=== PATIENT | female | born 1950 | race African-American/Black ===

== ENCOUNTER 2017-05-29 02:03 | Inpatient (IN) | payer OTHER ==
[2017-05-29 02:57] LABS: Absolute Monocytes 0.6 K/uL (0.1-1.3); Absolute Neutrophil 3.6 K/uL (1.8-8.0); Basophils % 0.8 % (0-1.3); Eosinophils % 4.1 % (0-4.4); Hematocrit 39.2 % (36.0-45.0); Lymphocytes % 39.2 % (15.3-44.8); MCH 28.7 pg (27.0-35.0); MCV 86.9 fL (80-100); MPV 11.8 fL (7.6-11.3); Monocytes % 8.2 % (3.3-12.3); RBC Red Blood Cell Count 4.51 M/uL (3.86-4.86)
[2017-05-29 02:58] LABS: Protime INR 1.2
[2017-05-29 03:12] LABS: Albumin 4.4 g/dL (3.2-5.5); Bilirubin Direct 0.2 mg/dL (0-0.2); Bilirubin Total 0.8 mg/dL (0.3-1.2); Magnesium 1.9 mg/dL (1.8-2.5); Protein, Total 7.7 g/dL (6.0-8.3)
[2017-05-29 03:22] LABS: Potassium 2.2 mEq/L (3.6-5.0)
--- NOTE | 2017-05-29 03:35 | ER ---
Nurse's Notes [facility] Name: Lilli Dave Age: 67 yrs Sex: Female : 1950 Arrival Date: 05/29/2017 Time: 02:10 Bed 18 Private MD: Diagnosis: Atrial fibrillation and flutter-New onset Presentation: 05/29 02:10 Presenting complaint: EMS states: pt called c/o CP and fatigue x 1 hour. 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 Upon arrival to ED pt denies CP. C/O weakness and nausea only. Transition of care: patient was not received from another setting of care. Onset of symptoms was May 29, 2017. Care prior to arrival: Medication(s) given: ASA, 81 mg, x 4. 02:10 Method Of Arrival: EMS: [facility] aa1 02:10 Acuity: IBAN 3 aa1 Historical: - Allergies: 02:15 No Known Drug Allergies; aa1 - PMHx: 02:15 COPD; Hypertension; Hypothyroidism; CHF; Myocardial infarction; renal insufficiency; aa1 - PSHx: 02:15 Appendectomy; Hysterectomy; Tubal ligation; aa1 - Immunization history:: Flu vaccine is not up to date. - Social history:: Smoking status: Patient/guardian denies using tobacco. Screenin:16 Abuse screen: Denies threats or abuse. Denies injuries from another. Nutritional aa1 screening: No deficits noted. Tuberculosis screening: No symptoms or risk factors identified. Fall Risk None identified. Assessment: 02:16 General: Appears in no apparent distress. comfortable, Behavior is calm, cooperative, aa1 appropriate for age. Pain: Denies pain. Neuro: Level of Consciousness is awake, alert, obeys commands, Oriented to person, place, time, situation, Appropriate for age. Cardiovascular: Reports fatigue, nausea, Heart tones S1 S2 present Capillary refill < 3 seconds Clubbing of nail beds is absent Patient's skin is warm and dry. Rhythm is irregular. Respiratory: Airway is patent Respiratory effort is even, unlabored, Respiratory pattern is regular, symmetrical. GI: Reports nausea. : No signs and/or symptoms were reported regarding the genitourinary system. EENT: No signs and/or symptoms were reported regarding the EENT system. Derm: Skin is intact, is healthy with good turgor, Skin is pink, warm \T\ dry. Musculoskeletal: Circulation, motion, and sensation intact. Capillary refill < 3 seconds. 03:14 Reassessment: Patient appears in no apparent distress at this time. Patient and/or aa1 family updated on plan of care and expected duration. Pain level reassessed. Patient is alert, oriented x 3, equal unlabored respirations, skin warm/dry/pink. Awaiting lab results. 05:03 Reassessment: Patient appears in no apparent distress at this time. Patient and/or aa1 family updated on plan of care and expected duration. Pain level reassessed. Patient is alert, oriented x 3, equal unlabored respirations, skin warm/dry/pink. Report given to Elda on 4th floor. Vital Signs: 02:15 BP 106 / 74; Pulse 77; Resp 20; Temp 97.9(O); Pulse Ox 99% on R/A; Weight 127.01 kg; aa1 Height 5 ft. 6 in. (167.64 cm); Pain 0/10; 03:13 BP 102 / 65; Pulse 113; Resp 18; Pulse Ox 100% on R/A; Pain 0/10; aa1 05:02 BP 104 / 66; Pulse 90; Resp 18; Pulse Ox 100% on R/A; Pain 0/10; aa1 02:15 Body Mass Index 45.19 (127.01 kg, 167.64 cm) aa1 ED Course: 02:10 Patient arrived in ED. aa1 02:11 Kenji Galarza MD is Attending Physician. kdr 02:12 Triage completed. aa1 02:15 Arm band placed on right wrist. Patient placed in an exam room, on a stretcher. aa1 02:16 Patient has correct armband on for positive identification. Placed in gown. Bed in low aa1 position. Call light in reach. Side rails up X2. health information systems technician on. Pulse ox on. NIBP on. Warm blanket given. 02:16 EKG done, by ED staff, reviewed by Kenji Galarza MD. Patient maintains SpO2 saturation aa1 greater than 95% on room air. 02:31 Inserted saline lock: 20 gauge in right antecubital area, using aseptic technique. oe Blood collected. 02:37 X-ray completed. Portable x-ray completed in exam room. Patient tolerated procedure kw well. 02:38 XRAY Chest (1 view) In Process Unspecified. EDMS 03:13 Shayna Alfaro RN is Primary Nurse. aa1 03:34 Jaya Flores MD is Hospitalizing Provider. kdr 05:11 No provider procedures requiring assistance completed. Patient admitted, IV remains in aa1 place. Administered Medications: 03:47 Drug: Digoxin 0.5 mg Route: IVP; Site: right antecubital; aa1 05:13 Follow up: Response: No adverse reaction; Cardiac rhythm is unchanged aa1 03:48 Drug: Potassium Chloride 40 mEq Route: PO; aa1 05:13 Follow up: Response: No adverse reaction aa1 03:48 Drug: Potassium Chloride 20 mEq Route: IV; Rate: calculated rate; Site: right aa1 antecubital; 05:13 Follow up: IV Status: Infusion continued upon admission aa1 03:48 Drug: Lovenox 1 mg/kg Route: Sub-Q; Site: right lower abdomen; aa1 05:13 Follow up: Response: No adverse reaction aa1 Outcome: 03:35 Decision to Hospitalize by Provider. kdr 05:11 Admitted to Tele accompanied by tech, family with patient, via stretcher, room 410, aa1 with chart, Report called to Elda 05:11 Condition: stable 05:11 Instructed on the need for admit, Demonstrated understanding of instructions. 05:14 Patient left the ED. aa1 Signatures: Dispatcher [employer] EDMS Shayna Alfaro RN RN aa1 Kenji Galarza MD MD kdr Whitley, Kimberlee kw Espinosa, [place] oe
--- NOTE | 2017-05-29 03:35 | EDPHYS ---
Physician Documentation [facility] Name: Lilli Dave Age: 67 yrs Sex: Female : 1950 Arrival Date: 05/29/2017 Time: 02:10 Bed 18 Private MD: ED Physician Kenji Galarza HPI: 05/29 02:50 This 67 yrs old Black Female presents to ER via EMS with complaints of Chest Pain. kdr 02:50 The patient or guardian reports chest pain that is located primarily in the anterior kdr chest wall, bilaterally. Onset: gradually, 2 day(s) ago. The pain does not radiate. Associated signs and symptoms: Pertinent positives: diaphoresis, lightheadedness, nausea, palpitations, shortness of breath, Pertinent negatives: dizziness, headache, lower extremity pain, near syncope, recent travel, syncope, vomiting. The chest pain is described as aching, burning, dull, a pressure. Duration: The patient or guardian reports multiple episodes, that are intermittent, that wax and wane, with no pattern. Modifying factors: The symptoms are alleviated by nothing. the symptoms are aggravated by nothing. Severity of pain: At its worst the pain was moderate in the emergency department the pain has improved moderately. The patient has not experienced similar symptoms in the past. The patient has not recently seen a physician. Historical: - Allergies: 02:15 No Known Drug Allergies; aa1 - PMHx: 02:15 COPD; Hypertension; Hypothyroidism; CHF; Myocardial infarction; renal insufficiency; aa1 - PSHx: 02:15 Appendectomy; Hysterectomy; Tubal ligation; aa1 - Immunization history:: Flu vaccine is not up to date. - Social history:: Smoking status: Patient/guardian denies using tobacco. ROS: 02:50 Constitutional: Negative for fever, chills, and weight loss, Eyes: Negative for injury, kdr pain, redness, and discharge, Neck: Negative for injury, pain, and swelling, Cardiovascular: Negative for chest pain, palpitations, and edema, Respiratory: Negative for shortness of breath, cough, wheezing, and pleuritic chest pain, Abdomen/GI: Negative for abdominal pain, nausea, vomiting, diarrhea, and constipation, Back: Negative for injury and pain, : Negative for injury, bleeding, discharge, and swelling, Skin: Negative for injury, rash, and discoloration, Neuro: Negative for headache, weakness, numbness, tingling, and seizure activity. Psych: Negative for depression, anxiety, suicide ideation, homicidal ideation, and hallucinations, Allergy/Immunology: Negative for hives, rash, and allergies, Endocrine: Negative for neck swelling, polydipsia, polyuria, polyphagia, and marked weight changes, Hematologic/Lymphatic: Negative for swollen nodes, abnormal bleeding, and unusual bruising. 02:50 MS/extremity: Positive for swelling, tenderness, Edema to both extremities. She states that her legs used to go down at night but since she has been off her lasix, her legs no longer reduce in size at night. Exam: 02:50 Constitutional: This is a well developed, well nourished patient who is awake, alert, kdr and in no acute distress. Head/Face: Normocephalic, atraumatic. Eyes: Pupils equal round and reactive to light, extra-ocular motions intact. Lids and lashes normal. Conjunctiva and sclera are non-icteric and not injected. Cornea within normal limits. Periorbital areas with no swelling, redness, or edema. Neck: Trachea midline, no thyromegaly or masses palpated, and no cervical lymphadenopathy. Supple, full range of motion without nuchal rigidity, or vertebral point tenderness. No Meningismus. Chest/axilla: Normal chest wall appearance and motion. Nontender with no deformity. No lesions are appreciated. Respiratory: Lungs have equal breath sounds bilaterally, clear to auscultation and percussion. No rales, rhonchi or wheezes noted. No increased work of breathing, no retractions or nasal flaring. Abdomen/GI: Soft, non-tender, with normal bowel sounds. No distension or tympany. No guarding or rebound. No evidence of tenderness throughout. Back: No spinal tenderness. No costovertebral tenderness. Full range of motion. Skin: Warm, dry with normal turgor. Normal color with no rashes, no lesions, and no evidence of cellulitis. MS/ Extremity: Pulses equal, no cyanosis. Neurovascular intact. Full, normal range of motion. 4+ pitting edema bilatrerally Neuro: Awake and alert, GCS 15, oriented to person, place, time, and situation. Cranial nerves II-XII grossly intact. Motor strength 5/5 in all extremities. Sensory grossly intact. Cerebellar exam normal. Normal gait. Psych: Awake, alert, with orientation to person, place and time. Behavior, mood, and affect are within normal limits. 02:50 Cardiovascular: Rate: tachycardic, Rhythm: irregularly irregular, Pulses: no pulse deficits are appreciated, Heart sounds: normal, Edema: 4+ edema to level of left midcalf, left ankle, left foot, right midcalf, right ankle and right foot, pedal edema, that is moderate. Vital Signs: 02:15 BP 106 / 74; Pulse 77; Resp 20; Temp 97.9(O); Pulse Ox 99% on R/A; Weight 127.01 kg; aa1 Height 5 ft. 6 in. (167.64 cm); Pain 0/10; 03:13 BP 102 / 65; Pulse 113; Resp 18; Pulse Ox 100% on R/A; Pain 0/10; aa1 05:02 BP 104 / 66; Pulse 90; Resp 18; Pulse Ox 100% on R/A; Pain 0/10; aa1 02:15 Body Mass Index 45.19 (127.01 kg, 167.64 cm) aa1 MDM: 02:50 Data reviewed: vital signs, nurses notes, lab test result(s). Counseling: I had a kdr detailed discussion with the patient and/or guardian regarding: the historical points, exam findings, and any diagnostic results supporting the discharge/admit diagnosis, lab results, radiology results, the need for further work-up and treatment in the hospital. 03:35 Patient medically screened. [facility] 05/29 02:11 Order name: Basic Metabolic Panel; Complete Time: 03:25 [facility] 05/29 02:11 Order name: BNP; Complete Time: 03:16 [facility] 05/29 02:11 Order name: CBC with Diff; Complete Time: 03:16 [facility] 05/29 02:11 Order name: LFT's; Complete Time: 03:25 kdr 05/29 02:11 Order name: Magnesium; Complete Time: 03:25 [facility] 05/29 02:11 Order name: PT-INR; Complete Time: 03:16 [facility] 05/29 02:11 Order name: Ptt, Activated; Complete Time: 03:16 [facility] 05/29 02:11 Order name: Troponin (emerg Dept Use Only); Complete Time: 03:16 [facility] 05/29 02:11 Order name: XRAY Chest (1 view) [facility] 05/29 03:35 Order name: TSH kdr 05/29 02:11 Order name: EKG; Complete Time: 02:12 kdr 05/29 02:11 Order name: Cardiac monitoring; Complete Time: 02:18 kdr 05/29 02:11 Order name: EKG - Nurse/Tech; Complete Time: 02:18 kdr 05/29 02:11 Order name: IV Saline Lock; Complete Time: : kdr 05/29 02:11 Order name: Labs collected and sent; Complete Time: : kdr 05/29 02:11 Order name: O2 Per Protocol; Complete Time: :18 kdr 05/29 02:11 Order name: O2 Sat Monitoring; Complete Time: :18 kdr Administered Medications: 03:47 Drug: Digoxin 0.5 mg Route: IVP; Site: right antecubital; aa1 05:13 Follow up: Response: No adverse reaction; Cardiac rhythm is unchanged aa1 03:48 Drug: Potassium Chloride 40 mEq Route: PO; aa1 05:13 Follow up: Response: No adverse reaction aa1 03:48 Drug: Potassium Chloride 20 mEq Route: IV; Rate: calculated rate; Site: right aa1 antecubital; 05:13 Follow up: IV Status: Infusion continued upon admission aa1 03:48 Drug: Lovenox 1 mg/kg Route: Sub-Q; Site: right lower abdomen; aa1 05:13 Follow up: Response: No adverse reaction aa1 Disposition: 05/29/17 03:35 Hospitalization ordered by Jaya Flores for Observation. Preliminary diagnosis is Atrial fibrillation and flutter - New onset. - Bed requested for Telemetry/MedSurg (observation). - Status is Observation. aa1 - Condition is Fair. - Problem is new. - Symptoms have improved. UTI on Admission? No Signatures: Dispatcher [employer] EDMS Shayna Alfaro RN RN aa1 Kenji Galarza MD MD kdr Analy Castle RN RN
[2017-05-29] MEDS ORDERED: POTASSIUM CL SA 10 MEQ TAB PO ONE (03:47)
[2017-05-29] MEDS ORDERED: ENOXAPARIN 100 MG/ML SYR SQ ONE (03:48)
[2017-05-29] MEDS ORDERED: DIGOXIN 0.25 MG/ML AMP ONE (03:48)
[2017-05-29] MEDS ORDERED: KCL 20 MEQ/100 mL IVPB 20 MEQ/100 ML BAG IV ONE (03:48)
[2017-05-29] MEDS ORDERED: NA CHLORIDE 0.9% 250 ML ONE ×2 (03:48→23:20)
[2017-05-29] MEDS ORDERED: ACETAMINOPHEN 500 MG TAB PO PRN (04:05)
[2017-05-29] MEDS ORDERED: MORPHINE 4 MG/ML SYR IV PRN (04:05)
[2017-05-29] MEDS: POTASSIUM CL 40 MEQ in NA CHLORIDE 0.9% 500 ML IV SCH ×2 (05:00→09:18)
[2017-05-29 07:36] VITALS: O2SAT 99
[2017-05-29] MEDS ORDERED: PNEUMOCOCCAL VACCINE 0.5 ML IMVAC ONE (08:00)
--- NOTE | 2017-05-29 08:26 | RAD REPORT ---
EXAM DESCRIPTION: RAD - Chest Single View - 05/29/2017 2:37 am CLINICAL HISTORY: Chest pain, fatigue COMPARISON: 03/02/2017 FINDINGS: Portable technique limits examination quality. Mild bilateral pulmonary opacities are present likely representing mild interstitial pulmonary edema or interstitial pneumonia. The heart is mildly prominent size. Tortuous thoracic aorta. No displaced fractures. IMPRESSION: Interstitial prominence is noted probably representing mild interstitial pulmonary edema or interstitial pneumonitis.
--- NOTE | 2017-05-29 08:40 | P.HP ---
Certification for Inpatient Patient admitted to: Observation With expected LOS: <2 Midnights Patient will require the following post-hospital care: None Practitioner: I am a practitioner with admitting privileges, knowledge of patient current condition, hospital course, and medical plan of care. Services: Services provided to patient in accordance with Admission requirements found in Title 42 Section 412.3 of the Code of Federal Regulations Patient History Date of Service: 05/29/17 Reason for admission: Generalized weakness; atrial fibrillation with rapid ventricular response History of Present Illness: Patient is a 67-year-old female who was recently in [facility]. She was followed up as an outpatient and most her medications that she was taking for quite a while was discontinued. She is not really sure what the medicines were stopped. She said they tried her on some your medicines that and have his many side effects. But according the patient they stopped her thyroid medicine, her diuretics, her potassium, and some of her cardiac meds. She was also diagnose with adrenal insufficiency but she states she is not on any medicine for this. She presented to our hospital with atrial fibrillation with rapid ventricular response. Patient was found have severe hypokalemia. She had generalized weakness and was having a hard time holding her head up this morning. After potassium supplement she is feeling better. At this time will admit her to the hospital for further evaluation. Allergies iodine Allergy (Verified 06/10/16 04:03) UNK Penicillins Allergy (Verified 06/10/16 04:03) UNK Sulfa (Sulfonamide Antibiotics) Allergy (Verified 02/28/17 07:55) Shortness of breath No Known Drug Allergies Allergy (Uncoded 05/29/17 05:19) Unknown Home Medications: Aspirin [Aspirin EC 81 MG] 81 mg PO DAILY 06/10/16 Levothyroxine [Synthroid*] 50 mcg PO [id number] 06/10/16 Nitroglycerin 1 tab PO SEECOM PRN 06/10/16 Budesonide/Formoterol Fumarate [Symbicort 160-4.5 Mcg Inhaler] 2 puff IH BID #1 [id number] 06/11/16 Spironolactone [Aldactone*] 50 mg PO DAILY #30 tab 06/11/16 Brimonidine Tartrate 2 drops OP Q12H 11/19/16 Hydroxyzine HCl [Atarax] 1 tab PO Q6HP PRN 11/19/16 Metoprolol Tartrate [Lopressor*] 25 mg PO DAILY 11/19/16 Atorvastatin Calcium [Lipitor] 40 mg PO BEDTIME #30 tab 11/22/16 Albuterol Neb [Proventil 0.083% Neb Soln] 2.5 mg NEB [id number] #30 amp 03/05/17 Benzonatate [Tessalon Perle*] 100 mg PO TID #30 cap 03/05/17 Furosemide [Lasix*] 40 mg PO TID #90 tab 03/05/17 Ipratropium Neb [Atrovent*] 0.5 mg NEB [id number] #30 amp 03/05/17 - Past Medical/Surgical History Has patient received pneumonia vaccine in the past: No Diabetic: No -: HTN -: COPD -: Migraine headaches -: Coronary artery disease -: CHF diastolic dysfunction -: Chronic renal disease -: GERD -: Obesity -: Hypothyroidism -: High Cholesterol -: Hysterectomy -: Appendectomy Psychosocial/ Personal History: She has a partner. She is looking to get here soon. She has 3 children. She does not work. - Family History Father Medical History: Cancer Mother Medical History: Hypertension, Other (see notes) Notes: heart murmur - Social History Smoking Status: Former smoker Alcohol use: No CD- Drugs: No Caffeine use: No Place of Residence: Home Review of Systems 10-point ROS is otherwise unremarkable Physical Examination - Vital Signs Temperature: 97.4 F Blood Pressure: 124/62 Pulse: 87 Respirations: 16 Pulse Ox (%): 99 - Physical Exam General: Alert, In no apparent distress, Oriented x3 HEENT: Atraumatic, PERRLA, Mucous membr. moist/pink, EOMI, Sclerae nonicteric Neck: Supple, 2+ carotid pulse no bruit, No LAD, Without JVD or thyroid abnormality Respiratory: Clear to auscultation bilaterally, Normal air movement Cardiovascular: Irregular heart rate/rhythm, Systolic murmur Gastrointestinal: Normal bowel sounds, Soft and benign, Non-distended, No tenderness Musculoskeletal: No clubbing, No tenderness, Swelling Integumentary: No rashes Neurological: Normal gait, Normal tone, Sensation intact, Cranial nerves 3-12 intact, Normal affect, Abnormal speech, Abnormal strength Lymphatics: No axilla or inguinal lymphadenopathy - Studies Laboratory Data (last 24 hrs) 05/29/17 02:26: PT 14.2 H, INR 1.20, APTT 26.0 05/29/17 02:26: WBC 7.6, Hgb 12.9, Hct 39.2, Plt Count 142 L 05/29/17 02:26: B-Natriuretic Peptide 480 H 05/29/17 02:26: Sodium 142, Potassium 2.2 L*, BUN 20, Creatinine 1.45 H, Glucose 139 H, Magnesium 1.9, Total Bilirubin 0.8, AST 24, ALT 16, Alkaline Phosphatase 84 Assessment & Plan - Problems (Diagnosis) (1) Generalized weakness Current Visit: Yes Status: Acute (2) Hypokalemia Current Visit: Yes Status: Acute (3) Atrial fibrillation with rapid ventricular response Current Visit: Yes Status: Acute (4) CHF (congestive heart failure) Onset Date: 03/05/17 Current Visit: No Status: Chronic Qualifiers: (5) COPD (chronic obstructive pulmonary disease) Onset Date: 06/11/16 Current Visit: No Status: Chronic Qualifiers: (6) Coronary artery disease Onset Date: 06/11/16 Current Visit: No Status: Chronic Qualifiers: Coronary Disease-Associated Artery/Lesion type: [place] artery (7) Hypertension Onset Date: 03/05/17 Current Visit: No Status: Chronic Qualifiers: Hypertension type: essential hypertension (8) Hypothyroidism Onset Date: 03/05/17 Current Visit: No Status: Chronic Qualifiers: Hypothyroidism type: acquired Qualified Code(s): E03.9 - Hypothyroidism, unspecified (9) Obesity Onset Date: 06/11/16 Current Visit: No Status: Chronic (10) Hypothyroid Current Visit: Yes Status: Acute (11) Adrenal insufficiency Current Visit: Yes Status: Acute - Plan Plan: 1. Medication for rate control 2. Anti coagulation 3. Potassium supplementation 4. Diuresing for bilateral lower extremity edema 5. Echocardiogram 6. Records from [facility] 7. Cardiology consultation 8. Check thyroid studies and cortisol level 9. GI and DVT prophylaxis Discharge Plan: Home Plan to discharge in: 48 Hours - Advance Directives Does patient have a Living Will: No Does patient have a Durable POA for Healthcare: No - Code Status/Comfort Care Code Status Assessed: Yes Code Status: Full Code Critical Care: No Time Spent Managing PTS Care (In Minutes): 50
[2017-05-29] MEDS ORDERED: METOPROLOL TAR 50 MG TAB PO SCH (09:00)
[2017-05-29] MEDS: SPIRONOLACTONE 25 MG TABLET PO SCH (09:16)
[2017-05-29] MEDS: ASPIRIN EC 81 MG TAB PO SCH (09:16)
--- NOTE | 2017-05-29 10:22 | EKG ---
Test Date: 2017-05-29 Test Time: 02:09:37 Entertainment Director: TYLER MEASUREMENT RESULTS: Intervals: Rate: 92 IN: QRSD: 124 QT: 416 QTc: 514 [place]: P: IN: QRS: -45 T: 134 INTERPRETIVE STATEMENTS: Atrial fibrillation Left anterior fascicular block Septal infarct, age undetermined Possible Lateral infarct, age undetermined Abnormal ECG Compared to ECG 02/28/2017 11:44:05 Left anterior fascicular block now present Sinus rhythm no longer present Left-axis deviation no longer present T-wave abnormality no longer present Possible ischemia no longer present Myocardial infarct finding still present Electronically Signed On 05-29-17 10:21:37 CDT by Jaime Caldera
--- NOTE | 2017-05-29 15:24 | ECHO ---
HEIGHT: 5 ft 6 in WEIGHT: 273 lb 5 oz DATE OF STUDY: 05/29/[address]: Jaya Flores MD 2-DIMENSIONAL: YES M.MODE: YES DOPPLER: YES COLOR FLOW: YES TDS: YES PORTABLE: NO DEFINITY: NO BUBBLE STUDY: NO DIAGNOSIS: ATRIAL FIBRILLATION CARDIAC HISTORY: CATHERIZATION: NO SURGERY: NO PROSTHETIC VALVE: NO PACEMAKER: NO MEASUREMENTS (cm) DIASTOLIC (NORMALS) SYSTOLIC (NORMALS) IVSd 1.5 (0.6-1.2) LA Diam 4.4 (1.9-4.0) LVEF 60-69% LVIDd 3.8 (3.5-5.7) LVIDs 3.1 (2.0-3.5) %FS LVPWd 1.4 (0.6-1.2) Ao Diam 3.0 (2.0-3.7) 2 DIMENSIONAL ASSESSMENT: RIGHT ATRIUM: NORMAL LEFT ATRIUM: DILATED RIGHT VENTRICLE: NORMAL LEFT VENTRICLE: LEFT VENTRICULAR HYPERTROPHY TRICUSPID VALVE: NORMAL MITRAL VALVE: NORMAL PULMONIC VALVE: NORMAL AORTIC VALVE: NORMAL PERICARDIAL EFFUSION: NONE AORTIC ROOT: NORMAL LEFT VENTRICULAR WALL MOTION: NORMAL. DOPPLER/COLOR FLOW: MILD MITRAL AND TRICUSPID REGURGITATION. NORMAL RIGHT VENTRICULAR SYSTOLIC PRESSURE. IMPAIRED LEFT VENTRICULAR RELAXATION. COMMENTS: NORMAL LEFT VENTRICULAR EJECTION FRACTION. LEFT VENTRICULAR HYPERTROPHY. DILATED LEFT ATRIUM. MILD MITRAL AND TRICUSPID REGURGITATION. IMPAIRED LEFT VENTRICULAR RELAXATION. TECHNOLOGIST: SWATHI MILLARD
--- NOTE | 2017-05-29 15:31 | CON ---
History Of Present Illness: Ms. Dave came to the hospital with shortness of breath and swelling. She had several medication changes, recently thyroid medicines were stopped, loop diuretic stopped, spironolactone stopped. She has congestive heart failure with normal ejection fraction. She has alexandru st pain that sounds a lot like angina, but 8 or 9 months ago cardiac cath was normal. She has abnorm al troponins; one of them is 0.5 today, she has never had AFib before, but she is in in AFib with rap id response and her heart rate is fast. Her EKG becomes a left bundle-branch block. The patient has drug allergy to iodine, penicillin and sulfa. She has renal insufficiency with a creatinine of 1.45 , potassium levels very low and echocardiogram is pending at this time. Physical Examination: 5 feet 6, 273 pounds, morbidly obese. Peripheral edema. She does not seem to have pulmonary edema. Imaging: Her EKG shows AFib, left bundle, 3 to 4+ pitting edema, edema of the abdominal wall, presac ral edema were all noted. Laboratory Data: Potassium was 2.2. She has had quite a few bags of potassium chloride replacement since that time. Plan: I think we should try to re-establish sinus rhythm by switching her to Betapace. Continue on the anticoagulant, try and diurese her while we are replacing potassium. I think she will need to be on spironolactone and a loop diuretic to keep things under control. At some point, it might be good to repeat a cardiac cath. The enzymes are confusing, they can go up when there is rapid AFib and LV H. I think that is what it is. I do not think she has developed significant coronary atheroscleroti c occlusive disease in a few months although doing a cardiac cath is probably worthwhile. She is not in good enough shape to do it. Now she is not in bad enough shape to call it an emergency cath, so I think we should try to get things as good as we can. Hemodynamically improved her symptoms and perhaps do a cardiac cath next week. JAMARCUS/JENSEN Voice ID: [id number] Report ID: [id number]
--- NOTE | 2017-05-29 15:58 | P.PN ---
Subjective Date of Service: 05/29/17 Chief Complaint: Generalized weakness; atrial fibrillation with rapid ventricular response The patient feels better after she was admitted to hospital and treated with intravenous Lasix. She had no new complaints Physical Examination - Vital Signs Temperature: 97.8 F Blood Pressure: 99/62 Pulse: 70 Respirations: 16 Pulse Ox (%): 99 - Physical Exam General: Alert, In no apparent distress HEENT: Atraumatic, PERRLA, EOMI Neck: Supple, JVD not distended Respiratory: Clear to auscultation bilaterally, Normal air movement Cardiovascular: Regular rate/rhythm, Normal S1 S2 Gastrointestinal: Normal bowel sounds, No tenderness Musculoskeletal: No tenderness Integumentary: No rashes Neurological: Normal speech, Normal tone, Normal affect Lymphatics: No axilla or inguinal lymphadenopathy - Studies Laboratory Data (last 24 hrs) 05/29/17 02:26: PT 14.2 H, INR 1.20, APTT 26.0 05/29/17 02:26: WBC 7.6, Hgb 12.9, Hct 39.2, Plt Count 142 L 05/29/17 02:26: B-Natriuretic Peptide 480 H 05/29/17 02:26: Sodium 142, Potassium 2.2 L*, BUN 20, Creatinine 1.45 H, Glucose 139 H, Magnesium 1.9, Total Bilirubin 0.8, AST 24, ALT 16, Alkaline Phosphatase 84 Medications List Reviewed: Yes Assessment And Plan - Current Problems (Diagnosis) (1) Atrial fibrillation with rapid ventricular response Onset Date: 05/29/17 Current Visit: Yes Status: Acute (2) Hypokalemia Onset Date: 05/29/17 Current Visit: Yes Status: Acute (3) Hypothyroid Onset Date: 05/29/17 Current Visit: Yes Status: Chronic Qualifiers: Hypothyroidism type: acquired Qualified Code(s): E03.9 - Hypothyroidism, unspecified (4) Chest pain Onset Date: 06/11/16 Current Visit: Yes Status: Acute Qualifiers: Chest pain type: unspecified Qualified Code(s): R07.9 - Chest pain, unspecified (5) Elevated troponin Onset Date: 03/05/17 Current Visit: Yes Status: Acute (6) UTI (urinary tract infection) Current Visit: Yes Status: Chronic Qualifiers: Urinary tract infection type: acute cystitis Hematuria presence: without hematuria Qualified Code(s): N30.00 - Acute cystitis without hematuria (7) CHF (congestive heart failure) Onset Date: 03/05/17 Current Visit: Yes Status: Chronic Qualifiers: Heart failure type: diastolic Heart failure chronicity: chronic Qualified Code(s): I50.32 - Chronic diastolic (congestive) heart failure (8) COPD (chronic obstructive pulmonary disease) Onset Date: 06/11/16 Current Visit: Yes Status: Chronic Qualifiers: COPD type: unspecified COPD Qualified Code(s): J44.9 - Chronic obstructive pulmonary disease, unspecified (9) Chronic renal disease Onset Date: 06/11/16 Current Visit: Yes Status: Chronic Qualifiers: Chronic kidney disease stage: stage 3 (moderate) Qualified Code(s): N18.3 - Chronic kidney disease, stage 3 (moderate) (10) Coronary artery disease Onset Date: 06/11/16 Current Visit: Yes Status: Chronic Qualifiers: Coronary Disease-Associated Artery/Lesion type: [place] artery [place] vs. transplanted heart: [place] heart Associated angina: with stable angina Qualified Code(s): I25.118 - Atherosclerotic heart disease of [place] coronary artery with other forms of angina pectoris (11) GERD (gastroesophageal reflux disease) Onset Date: 06/11/16 Current Visit: Yes Status: Chronic Qualifiers: Esophagitis presence: without esophagitis Qualified Code(s): K21.9 - Gastro -esophageal reflux disease without esophagitis (12) Hypertension Onset Date: 03/05/17 Current Visit: Yes Status: Chronic Qualifiers: Hypertension type: essential hypertension (13) Hypothyroidism Onset Date: 03/05/17 Current Visit: Yes Status: Chronic Qualifiers: Hypothyroidism type: acquired Qualified Code(s): E03.9 - Hypothyroidism, unspecified (14) Obesity Onset Date: 06/11/16 Current Visit: Yes Status: Chronic Qualifiers: Obesity type: due to excess calories Obesity classification: adult class 2 (BMI 35 - 39.9) Serious obesity comorbidity presence: without serious comorbidity Body mass index: BMI 38.0-38.9 Qualified Code(s): E66.09 - Other obesity due to excess calories; Z68.38 - Body mass index (BMI) 38.0-38.9, adult; Z68.38 - Body mass index (BMI) 38.0-38.9, adult - Plan --start patient on Betapace for atrial fibrillation -- --continue other medicine including Lasix potassium replacement --consider a cardiac catheterization next week for Dr. Caldera
[2017-05-29] MEDS ORDERED: ENOXAPARIN 100 MG/ML SYR SQ SCH (18:00)
[2017-05-29] MEDS: FUROSEMIDE 40 MG/4 ML VIAL IV SCH (18:28)
[2017-05-29] MEDS: SOTALOL HCL 80 MG TAB PO SCH (18:29)
[2017-05-29] MEDS: POTASSIUM 25 MEQ EFFERV TAB PO SCH (21:13)
[2017-05-29] MEDS: THIAMINE HCL 100 MG TABLET PO SCH (21:13)
[2017-05-30] MEDS ORDERED: KCL 20 MEQ/100 mL IVPB 20 MEQ/100 ML BAG IV SCH (00:01)
[2017-05-30] MEDS ORDERED: POTASSIUM 25 MEQ EFFERV TAB PO ONE (00:06)
[2017-05-30] MEDS ORDERED: Enoxaparin 120 MG/0.8 ML SYR SQ SCH (06:00)
[2017-05-30] MEDS: SOTALOL HCL 80 MG TAB PO SCH ×2 (06:46→16:37)
[2017-05-30 07:14] LABS: Absolute Lymphocytes (CBC) 3.1 K/uL (0.7-4.9); Absolute Monocytes 0.5 K/uL (0.1-1.3); Absolute Neutrophil 2.4 K/uL (1.8-8.0); Basophils % 1.1 % (0-1.3); Eosinophils % 4.7 % (0-4.4); Hematocrit 35.8 % (36.0-45.0); Lymphocytes % 48.1 % (15.3-44.8); MCH 28.2 pg (27.0-35.0); MCV 87.7 fL (80-100); Monocytes % 8.2 % (3.3-12.3); RBC Red Blood Cell Count 4.08 M/uL (3.86-4.86)
[2017-05-30 08:14] LABS: Albumin 3.6 g/dL (3.2-5.5); Magnesium 1.9 mg/dL (1.8-2.5); Protein, Total 6.5 g/dL (6.0-8.3)
[2017-05-30 08:16] LABS: Potassium 2.9 mEq/L (3.6-5.0)
[2017-05-30] MEDS: POTASSIUM 25 MEQ EFFERV TAB PO SCH ×2 (09:00→09:17)
[2017-05-30] MEDS: SPIRONOLACTONE 25 MG TABLET PO SCH (09:17)
[2017-05-30] MEDS: ASPIRIN EC 81 MG TAB PO SCH (09:17)
[2017-05-30] MEDS: THIAMINE HCL 100 MG TABLET PO SCH ×2 (09:17→20:46)
[2017-05-30] MEDS: KCL 20 MEQ/100 mL IVPB 20 MEQ/100 ML BAG IV SCH ×3 (09:18→13:00)
[2017-05-30] MEDS: FUROSEMIDE 40 MG/4 ML VIAL IV SCH ×2 (09:18→16:37)
[2017-05-30] MEDS ORDERED: DIPHENHYDRAMINE 50 MG/ML VIAL IV ONE (11:07)
--- NOTE | 2017-05-30 12:01 | PN ---
Date of Progress Note: 05/30/2017 Subjective: The patient is being seen as followup on 05/30/2017. She was seen by Dr. Werner cash for rapid atrial fibrillation. Ms. Dave was placed on Betapace yesterday. She is in normal si nus rhythm today. She is feeling better except for some itching that she has had prior to her medica tion. She remains on Betapace and Lovenox. She has sensitivities to Xarelto. She can probably go h ome today on Betapace and Eliquis. I will be happy to see her as an outpatient. SARAH/JENSEN Voice ID: [id number] Report ID: [id number]
[2017-05-30] MEDS: POTASSIUM CL SA 10 MEQ TAB PO SCH ×2 (13:56→20:45)
--- NOTE | 2017-05-30 16:29 | EKG ---
Test Date: 2017-05-30 Test Time: 08:17:11 Cylinder Loader: [place] MEASUREMENT RESULTS: Intervals: Rate: 69 [place]: 158 QRSD: 110 QT: 530 QTc: 567 [place]: P: 29 OH: 158 QRS: -51 T: -32 INTERPRETIVE STATEMENTS: Sinus rhythm with premature supraventricular complexes Left anterior fascicular block Septal infarct, age undetermined Possible Lateral infarct, age undetermined Cannot rule out Inferior infarct (masked by fascicular block?), age undetermined Prolonged QT Abnormal ECG Compared to ECG 05/29/2017 02:09:37 Atrial premature complex(es) now present Prolonged QT interval now present Atrial fibrillation no longer present Myocardial infarct finding still present Electronically Signed On 05-30-17 16:27:39 CDT by Rodney Tilley
[2017-05-30] MEDS ORDERED: DIPHENHYDRAMINE 25 MG TAB/CAP PO PRN (17:02)
--- NOTE | 2017-05-30 17:35 | P.PN ---
Subjective Date of Service: 05/30/17 Chief Complaint: Generalized weakness; atrial fibrillation with rapid ventricular response The patient feels better and she is in normal sinus with cement and she is on Betapace Physical Examination - Vital Signs Temperature: 97.7 F Blood Pressure: 112/63 Pulse: 61 Respirations: 18 Pulse Ox (%): 97 - Physical Exam General: Alert, In no apparent distress HEENT: Atraumatic, PERRLA, EOMI Neck: Supple, JVD not distended Respiratory: Clear to auscultation bilaterally, Normal air movement Cardiovascular: Regular rate/rhythm, Normal S1 S2 Gastrointestinal: Normal bowel sounds, No tenderness Musculoskeletal: No tenderness Integumentary: No rashes Neurological: Normal speech, Normal tone, Normal affect Lymphatics: No axilla or inguinal lymphadenopathy - Studies Medications List Reviewed: Yes Assessment And Plan - Current Problems (Diagnosis) (1) Atrial fibrillation with rapid ventricular response Onset Date: 05/29/17 Current Visit: Yes Status: Acute (2) Hypokalemia Onset Date: 05/29/17 Current Visit: Yes Status: Acute (3) Hypothyroid Onset Date: 05/29/17 Current Visit: Yes Status: Chronic Qualifiers: Hypothyroidism type: acquired Qualified Code(s): E03.9 - Hypothyroidism, unspecified (4) Chest pain Onset Date: 06/11/16 Current Visit: Yes Status: Acute Qualifiers: Chest pain type: unspecified Qualified Code(s): R07.9 - Chest pain, unspecified (5) Elevated troponin Onset Date: 03/05/17 Current Visit: Yes Status: Acute (6) UTI (urinary tract infection) Current Visit: Yes Status: Chronic Qualifiers: Urinary tract infection type: acute cystitis Hematuria presence: without hematuria Qualified Code(s): N30.00 - Acute cystitis without hematuria (7) CHF (congestive heart failure) Onset Date: 03/05/17 Current Visit: Yes Status: Chronic Qualifiers: Heart failure type: diastolic Heart failure chronicity: chronic Qualified Code(s): I50.32 - Chronic diastolic (congestive) heart failure (8) COPD (chronic obstructive pulmonary disease) Onset Date: 06/11/16 Current Visit: Yes Status: Chronic Qualifiers: COPD type: unspecified COPD Qualified Code(s): J44.9 - Chronic obstructive pulmonary disease, unspecified (9) Chronic renal disease Onset Date: 06/11/16 Current Visit: Yes Status: Chronic Qualifiers: Chronic kidney disease stage: stage 3 (moderate) Qualified Code(s): N18.3 - Chronic kidney disease, stage 3 (moderate) (10) Coronary artery disease Onset Date: 06/11/16 Current Visit: Yes Status: Chronic Qualifiers: Coronary Disease-Associated Artery/Lesion type: [place] artery [place] vs. transplanted heart: [place] heart Associated angina: with stable angina Qualified Code(s): I25.118 - Atherosclerotic heart disease of [place] coronary artery with other forms of angina pectoris (11) GERD (gastroesophageal reflux disease) Onset Date: 06/11/16 Current Visit: Yes Status: Chronic Qualifiers: Esophagitis presence: without esophagitis Qualified Code(s): K21.9 - Gastro -esophageal reflux disease without esophagitis (12) Hypertension Onset Date: 03/05/17 Current Visit: Yes Status: Chronic Qualifiers: Hypertension type: essential hypertension (13) Hypothyroidism Onset Date: 03/05/17 Current Visit: Yes Status: Chronic Qualifiers: Hypothyroidism type: acquired Qualified Code(s): E03.9 - Hypothyroidism, unspecified (14) Obesity Onset Date: 06/11/16 Current Visit: Yes Status: Chronic Qualifiers: Obesity type: due to excess calories Obesity classification: adult class 2 (BMI 35 - 39.9) Serious obesity comorbidity presence: without serious comorbidity Body mass index: BMI 38.0-38.9 Qualified Code(s): E66.09 - Other obesity due to excess calories; Z68.38 - Body mass index (BMI) 38.0-38.9, adult; Z68.38 - Body mass index (BMI) 38.0-38.9, adult - Plan --continue on Betapace for atrial fibrillation --continual potassium replacement --continue other medicine including Lasix potassium replacement --consider a cardiac catheterization next week for Dr. Caldera --discharge patient home tomorrow
[2017-05-31] MEDS ORDERED: POTASSIUM 25 MEQ EFFERV TAB PO ONE (01:54)
[2017-05-31] MEDS: SOTALOL HCL 80 MG TAB PO SCH ×2 (05:53→19:17)
[2017-05-31] MEDS: POTASSIUM 25 MEQ EFFERV TAB PO SCH ×3 (05:54→21:50)
[2017-05-31 07:21] LABS: Absolute Lymphocytes (CBC) 2.4 K/uL (0.7-4.9); Absolute Monocytes 0.7 K/uL (0.1-1.3); Basophils % 1.3 % (0-1.3); Eosinophils % 4.1 % (0-4.4); Lymphocytes % 37.2 % (15.3-44.8); MCH 28.3 pg (27.0-35.0); MCV 87.8 fL (80-100); MPV 12.2 fL (7.6-11.3); Monocytes % 10.7 % (3.3-12.3)
[2017-05-31 07:45] LABS: Albumin 3.8 g/dL (3.2-5.5); Bilirubin Total 0.9 mg/dL (0.3-1.2); Magnesium 1.9 mg/dL (1.8-2.5); Protein, Total 6.6 g/dL (6.0-8.3)
[2017-05-31 07:46] LABS: Potassium 2.6 mEq/L (3.6-5.0)
[2017-05-31] MEDS: SPIRONOLACTONE 25 MG TABLET PO SCH (11:09)
[2017-05-31] MEDS: THIAMINE HCL 100 MG TABLET PO SCH ×2 (11:10→21:50)
[2017-05-31] MEDS: FUROSEMIDE 40 MG/4 ML VIAL IV SCH ×2 (11:10→17:00)
[2017-05-31] MEDS: ASPIRIN EC 81 MG TAB PO SCH (11:10)
[2017-05-31] MEDS: POTASSIUM CL SA 10 MEQ TAB PO SCH (11:10)
[2017-05-31] MEDS: KCL 20 MEQ/100 mL IVPB 20 MEQ/100 ML BAG IV SCH ×2 (17:00→21:51)
--- NOTE | 2017-05-31 18:14 | P.PN ---
Subjective Date of Service: 05/31/17 Chief Complaint: Generalized weakness; atrial fibrillation with rapid ventricular response The patient feels better however her potassium remained low Physical Examination - Vital Signs Temperature: 97.0 F Blood Pressure: 93/45 Pulse: 67 Respirations: 18 Pulse Ox (%): 100 - Physical Exam General: Alert, In no apparent distress HEENT: Atraumatic, PERRLA, EOMI Neck: Supple, JVD not distended Respiratory: Clear to auscultation bilaterally, Normal air movement Cardiovascular: Regular rate/rhythm, Normal S1 S2 Gastrointestinal: Normal bowel sounds, No tenderness Musculoskeletal: No tenderness Integumentary: No rashes Neurological: Normal speech, Normal tone, Normal affect Lymphatics: No axilla or inguinal lymphadenopathy - Studies Medications List Reviewed: Yes Assessment And Plan - Current Problems (Diagnosis) (1) Hypokalemia Onset Date: 05/29/17 Current Visit: Yes Status: Acute (2) Atrial fibrillation with rapid ventricular response Onset Date: 05/29/17 Current Visit: Yes Status: Acute (3) Hypothyroid Onset Date: 05/29/17 Current Visit: Yes Status: Chronic Qualifiers: Hypothyroidism type: acquired Qualified Code(s): E03.9 - Hypothyroidism, unspecified (4) Chest pain Onset Date: 06/11/16 Current Visit: Yes Status: Acute Qualifiers: Chest pain type: unspecified Qualified Code(s): R07.9 - Chest pain, unspecified (5) Elevated troponin Onset Date: 03/05/17 Current Visit: Yes Status: Acute (6) UTI (urinary tract infection) Current Visit: Yes Status: Chronic Qualifiers: Urinary tract infection type: acute cystitis Hematuria presence: without hematuria Qualified Code(s): N30.00 - Acute cystitis without hematuria (7) CHF (congestive heart failure) Onset Date: 03/05/17 Current Visit: Yes Status: Chronic Qualifiers: Heart failure type: diastolic Heart failure chronicity: chronic Qualified Code(s): I50.32 - Chronic diastolic (congestive) heart failure (8) COPD (chronic obstructive pulmonary disease) Onset Date: 06/11/16 Current Visit: Yes Status: Chronic Qualifiers: COPD type: unspecified COPD Qualified Code(s): J44.9 - Chronic obstructive pulmonary disease, unspecified (9) Chronic renal disease Onset Date: 06/11/16 Current Visit: Yes Status: Chronic Qualifiers: Chronic kidney disease stage: stage 3 (moderate) Qualified Code(s): N18.3 - Chronic kidney disease, stage 3 (moderate) (10) Coronary artery disease Onset Date: 06/11/16 Current Visit: Yes Status: Chronic Qualifiers: Coronary Disease-Associated Artery/Lesion type: [place] artery [place] vs. transplanted heart: [place] heart Associated angina: with stable angina Qualified Code(s): I25.118 - Atherosclerotic heart disease of [place] coronary artery with other forms of angina pectoris (11) GERD (gastroesophageal reflux disease) Onset Date: 06/11/16 Current Visit: Yes Status: Chronic Qualifiers: Esophagitis presence: without esophagitis Qualified Code(s): K21.9 - Gastro -esophageal reflux disease without esophagitis (12) Hypertension Onset Date: 03/05/17 Current Visit: Yes Status: Chronic Qualifiers: Hypertension type: essential hypertension (13) Hypothyroidism Onset Date: 03/05/17 Current Visit: Yes Status: Chronic Qualifiers: Hypothyroidism type: acquired Qualified Code(s): E03.9 - Hypothyroidism, unspecified (14) Obesity Onset Date: 06/11/16 Current Visit: Yes Status: Chronic Qualifiers: Obesity type: due to excess calories Obesity classification: adult class 2 (BMI 35 - 39.9) Serious obesity comorbidity presence: without serious comorbidity Body mass index: BMI 38.0-38.9 Qualified Code(s): E66.09 - Other obesity due to excess calories; Z68.38 - Body mass index (BMI) 38.0-38.9, adult; Z68.38 - Body mass index (BMI) 38.0-38.9, adult - Plan The patient is a atrial fibrillation has been under control; however her potassium is too low to be discharged home --continue on Betapace for atrial fibrillation --continual aggressive potassium replacement --added Aldactone today; she cannot tolerate Juan inhibitors --discharge patient home tomorrow if her potassium is corrected
[2017-05-31] MEDS: FUROSEMIDE 20 MG TABLET PO SCH (19:16)
[2017-05-31] MEDS: MAGNESIUM OXIDE 400 MG TAB PO SCH (21:50)
[2017-05-31] MEDS ORDERED: NA CHLORIDE 0.9% 250 ML ONE (22:28)
[2017-06-01] MEDS: KCL 20 MEQ/100 mL IVPB 20 MEQ/100 ML BAG IV SCH (00:35)
[2017-06-01 05:46] VITALS: BMI 43.4
[2017-06-01] MEDS: SOTALOL HCL 80 MG TAB PO SCH (05:49)
[2017-06-01 06:15] LABS: Protein, Total 6.9 g/dL (6.0-8.3)
[2017-06-01 06:17] LABS: Potassium 3.1 mEq/L (3.6-5.0)
[2017-06-01 08:44] VITALS: TEMP 97
[2017-06-01] MEDS: SPIRONOLACTONE 25 MG TABLET PO SCH (09:00)
[2017-06-01] MEDS: FUROSEMIDE 20 MG TABLET PO SCH (09:00)
[2017-06-01] MEDS: POTASSIUM 25 MEQ EFFERV TAB PO SCH (09:24)
[2017-06-01] MEDS: MAGNESIUM OXIDE 400 MG TAB PO SCH (09:26)
[2017-06-01] MEDS: ASPIRIN EC 81 MG TAB PO SCH (09:26)
[2017-06-01] MEDS: THIAMINE HCL 100 MG TABLET PO SCH (09:26)
[2017-06-01] MEDS ORDERED: POTASSIUM CL 40 MEQ in NA CHLORIDE 0.9% 500 ML IV SCH (10:00)
[2017-06-01 13:35] VITALS: BP 100/50
--- NOTE | 2017-06-02 06:07 | DS ---
Date of Discharge: 06/01/2017 Discharge Diagnoses: 1.Atrial fibrillation with rapid ventricular response. 2.Hypokalemia. 3.Congestive heart failure exacerbation. 4.Chronic obstructive pulmonary disease. 5.Emphysema. 6.Coronary artery disease. 7.Hypertension. 8.Hypothyroidism. 9.Overweight. Consult: Cardiology. Procedure: Echocardiogram done on 05/29/2017 showed normal left ventricular ejection fraction, left ventricular hypertrophy, dilated left atrium, mild mitral tricuspid regurgitation, and impaired left ventricular relaxation. History Of Present Illness: Please refer to Dr. Flores's history and physical exam. Hospital Course: Initially, the patient presented with progressive shortness of breath, leg swelling , progressive fatigue and weakness, and she was found to be in the ER with AFib with RVR with severe hypokalemia. The patient was placed on IV potassium placement. She will continue on diuretics. For her atrial fibrillation, cardiac consult requested Dr. Tilley. Started on Betapace 80 mg twice a d ay, and she converted to regular rhythm. He advised to discharge her on Eliquis 5 mg twice a day, wh ile she was in the hospital on Lovenox. Also her Lasix was reduced from 40 mg q.i.d. to 40 mg twice a day and she was started on spironolactone to preserve her potassium. As outpatient, she will need to follow up closely with her mail forwarding system markup clerk in 1 to 2 weeks, also with primary care physician in [address] [place] [address]. We will repeat labs to make sure her potassium does not drop. This morning, her potassium was at 3.2. We will replace it with 40 mEq again and repeat the potassium before discharging her. Discharge Condition: Stable. Discharge Diet: Cardiac. Discharge Followup: Followup with primary care physician in 1 week with labs. Followup with Dr. Wilcox in 1 to 2 weeks with labs again. Discharge Medication: She will be on Eliquis 5 mg twice a day, Lasix 40 mg twice a day instead of 3 times a day, sotalol 80 mg twice a day, spironolactone 50 mg once a day, aspirin 81 mg once a day, Li pitor 40 mg once a day, Tessalon Perles 3 times a day before, brimonidine tartrate eyedrops as before , Symbicort inhaler as before, Atarax 10 mg orally every 6 hours as needed, Atrovent nebulizer every 6 hours as needed, Synthroid 0.05 tablets orally once a day, nitroglycerin as needed for chest pain. Physical Examination: Vital Signs: Today blood pressure is 100/50, respiratory rate 18, pulse 60, temperature 97. General: She is alert and oriented x3. Does not look in any distress. HEENT: Atraumatic, normocephalic. PERRLA. Oral mucosa is moist. Neck: Supple. No JVD. No carotid bruits. Chest: Clear to auscultation. Good air entry. Heart: Regular rate and rhythm. S1, S2 normal. No gallop. Abdomen: Soft, nontender. No masses. Positive bowel sounds. Extremities: No clubbing or cyanosis. No edema. Again, the patient advised strongly to follow up closely with her primary doctor to check her electro lytes within a week and with the mail forwarding system markup clerk in 2 weeks. WILMER Voice ID: [id number] Report ID: [id number]
== END 2017-06-01 16:27 | disposition home or self-care (01) | DRG 309 ==
LOC: ER 02:03 → ERHOLD 03:35 → OBSVTOIN 03:35 → 4TH 04:37
PROVIDERS: ADMIT Hospitalist; ATTEND Internal Medicine Hematology & Oncology
DX: I48.91 Unspecified atrial fibrillation (principal); I13.0 Hypertensive heart and chronic kidney disease with heart failure and stage 1 through stage 4 chronic kidney disease, or unspecified chronic kidney disease; E27.40 Unspecified adrenocortical insufficiency; I50.32 Chronic diastolic (congestive) heart failure; Z68.41 Body mass index [BMI] 40.0-44.9, adult; E87.6 Hypokalemia; I10 Essential (primary) hypertension; J44.9 Chronic obstructive pulmonary disease, unspecified; I25.10 Atherosclerotic heart disease of native coronary artery without angina pectoris; K21.9 Gastro-esophageal reflux disease without esophagitis; E66.9 Obesity, unspecified; E78.00 Pure hypercholesterolemia, unspecified; E03.9 Hypothyroidism, unspecified; N30.90 Cystitis, unspecified without hematuria; N18.3 Chronic kidney disease, stage 3 (moderate); Z87.891 Personal history of nicotine dependence
CPT/HCPCS: 36415; 71045; 80048; 80053; 80061; 80076; 82533; 83735; 83880; 84132; 84244; 84443; 84484; 85025; 85610; 85730; 93005; 93306; 96365; 96372; 96375; 99285; J1160; J1650